=== PATIENT | male | born 1950 | race Caucasian/White ===

== ENCOUNTER 2019-04-23 12:35 | Outpatient (CLI) | payer OTHER | END 2019-04-23 23:59 | disposition home or self-care (01) | LOC: CARD DIAG 12:35 | PROVIDERS: ATTEND Orthopaedic Surgery | DX: I25.9 Chronic ischemic heart disease, unspecified (principal) | CPT/HCPCS: 93306 ==

== ENCOUNTER 2022-06-27 15:40 | Outpatient (CLI) | payer OTHER ==
[~2022-06-27] VITALS: Ht 188 cm; Wt 108.0 kg
[2022-06-27] MEDS ORDERED: albuterol 2.5 MG/3 ML nebule NEB PRN (16:25)
== END 2022-06-27 23:59 | disposition home or self-care (01) ==
LOC: RT 15:40
PROVIDERS: ATTEND Chiropractor
DX: J44.9 Chronic obstructive pulmonary disease, unspecified (principal)
CPT/HCPCS: 71046; 94060; 94760

== ENCOUNTER 2022-10-23 13:49 | Outpatient (CLI) | payer OTHER | END 2022-10-23 23:59 | disposition home or self-care (01) | LOC: RAD 13:49 | PROVIDERS: ATTEND Chiropractor | DX: G45.1 Carotid artery syndrome (hemispheric) (principal); I70.0 Atherosclerosis of aorta | CPT/HCPCS: 71046 ==